=== PATIENT | female | born 1950 | race African-American/Black ===

== ENCOUNTER 2021-09-01 10:27 | Emergency (ER) | payer OTHER ==
[~2021-09-01] VITALS: Ht 170.2 cm; Wt 84.0 kg
[2021-09-01 11:33] LABS: BASOPHILS % 0.4 % (0.0-2.0); EOSINOPHILS % 0.3 % (0.0-5.0); HEMATOCRIT. 38.2 % (36.0-48.0); HEMOGLOBIN. 12.1 g/dL (12.0-16.0); LYMPHOCYTES % 17.2 % (20.0-50.0); MEAN CORPUSCULAR HEMOGLOBIN 28.3 pg (28.0-32.0); MEAN PLATELET VOLUME 7.4 fl (7.4-10.4); MONOCYTES % 14.2 % (2.0-8.0); NEUTROPHILS % 67.9 % (40.0-76.0); PLATELET 162 x1000/uL (130-400); RED BLOOD CELL COUNT 4.29 mill/uL (4.2-5.4); RED CELL DISTRIBUTION WIDTH 12.9 % (11.6-14.6)
[2021-09-01 11:38] LABS: CHLORIDE 109 mEq/L (98-107)
[2021-09-01 11:42] LABS: ETHANOL BLOOD < 10 mg/dL
[2021-09-01] MEDS ORDERED: DEXTROSE 10% WATER 500 ML IV ONE (12:00)
[2021-09-01] MEDS ORDERED: IOHEXOL-350 100 ML BOTTLE ONE (14:07)
[2021-09-01 14:46] VITALS: BP 136/65
[2021-09-01 15:17] LABS: CLARITY URINE CLEAR (CLEAR); COLOR URINE YELLOW (YELLOW); KETONES URINE NEGATIVE (NEGATIVE); LEUKOCYTE ESTERASE URINE NEGATIVE (NEGATIVE); NITRITE URINE NEGATIVE (NEGATIVE); OCCULT BLOOD URINE NEGATIVE (NEGATIVE); PH URINE 6.5 (4.5-8.0); PROTEIN URINE 2+ (NEGATIVE); SPECIFIC GRAVITY URINE 1.015 (1.005-1.030); UROBILINOGEN URINE 0.2 E.U./dL (0.2-1.0)
[2021-09-01 15:28] LABS: *BARBITURATES SCREEN URINE NEGATIVE (NEGATIVE); *COCAINE SCREEN URINE NEGATIVE (NEGATIVE)
[2021-09-01 15:29] LABS: *AMPHETAMINES SCREEN URINE NEGATIVE (NEGATIVE); *BENZODIAZEPINES SCREEN URINE NEGATIVE (NEGATIVE); METHADONE URINE SCREEN NEGATIVE (NEGATIVE); OPIATES URINE SCREEN NEGATIVE (NEGATIVE); PHENCYCLIDINE URINE SCREEN NEGATIVE (NEGATIVE)
[2021-09-01 15:30] LABS: CANNABINOID URINE SCREEN NEGATIVE (NEGATIVE)
== END 2021-09-01 15:04 | disposition short-term general hospital (02) ==
LOC: ER 10:53
DX: U07.1 COVID-19 (principal); R47.81 Slurred speech; R53.1 Weakness; R42 Dizziness and giddiness; E16.2 Hypoglycemia, unspecified
CPT/HCPCS: 36415; 70450; 71045; 80053; 80305; 80320; 81003; 82962; 84484; 85025; 87426; 93005; 99291; C9803; U0003; U0005; Q9967; G0480